=== PATIENT | female | born 1970 | race Two or more races ===

== ENCOUNTER 2021-07-22 00:40 | Inpatient (IN) | payer OTHER ==
[~2021-07-22] VITALS: Ht 167.6 cm; Wt 108.9 kg
[2021-07-22] MEDS ORDERED: GLUMETZA500 MG (00:58)
[2021-07-22] MEDS ORDERED: ACID REDUCER20 M1 (00:59)
[2021-07-23] MEDS ORDERED: FAMOTIDINE40 MG (10:26)
[2021-07-23] MEDS ORDERED: OMEPRAZOLE40 MG (10:26)
[2021-07-25] MEDS ORDERED: PERCOCET 5-3251 EACH PO (07:53)
[2021-07-25] MEDS ORDERED: PRILOSEC OTC20 MG PO (07:53)
== END 2021-07-25 09:29 | disposition home or self-care (01) | DRG 419 ==
LOC: ER 00:40 → SURH 14:00
PROVIDERS: ADMIT Surgery; ATTEND Surgery
PROC: BF37ZZZ Magnetic Resonance Imaging (MRI) of Pancreas (ICD-10-PCS; 2021-07-22)
PROC: BW40ZZZ Ultrasonography of Abdomen (ICD-10-PCS; 2021-07-22)
PROC: 0FT44ZZ Resection of Gallbladder, Percutaneous Endoscopic Approach (ICD-10-PCS; principal; 2021-07-23 15:00)
DX: K80.12 Calculus of gallbladder with acute and chronic cholecystitis without obstruction (principal); Z20.822 Contact with and (suspected) exposure to COVID-19